=== PATIENT | male | born 1965 | race Caucasian/White ===

== ENCOUNTER 2021-06-30 11:55 | Emergency (ER) | payer OTHER ==
[~2021-06-30] VITALS: Ht 165.1 cm; Wt 81.2 kg
--- NOTE | 2021-06-30 12:13 | NUR ---
SENT TO ER BED 1.[id number] FRM WORK FOR NOTED SEIZURE LIKE ACTIVITY, COMBATIVE. 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 PT IS POOR HISTORIAN. A&OX1 ONLY RESPONSIVE TO STIMULI. SEIZURE PRECUATIONS APPLIED. VITALS ARE WITHIN NORMAL LIMITS. NO NOTED ORAL TRAUMA. DR ORNELAS AT BEDSIDE.
--- NOTE | 2021-06-30 12:19 | NUR ---
IV ESTABLISHED R AC 18G. LABS DRAWN AND COLLECTED. CONVERTED TO SALINE LOCK.
[2021-06-30 12:22] LABS: BASOPHILS # (AUTO) 0.1 K/uL (0.0-0.2); BASOPHILS % (AUTO) 1.1 % (0.0-2.0); EOSINOPHILS % (AUTO) 1.6 % (0.0-6.0); HEMATOCRIT 45 % (39-51); HEMOGLOBIN 14.7 g/dL (13.5-17.5); MEAN CORPUSCULAR HGB CONC 33 g/dl (31.0-36.0); MEAN CORPUSCULAR VOLUME 84 fL (80-96); MONOCYTES # (AUTO) 0.8 K/uL (0.1-1.30); NEUTROPHILS # (AUTO) 6.9 K/uL (1.8-8.9); NEUTROPHILS % (AUTO) 57.3 % (43.0-81.0); PLATELET COUNT (AUTO) 241 K/uL (150-450); RED BLOOD CELL COUNT(AUTO) 5.35 MIL/uL (4.5-6.0); WHITE BLOOD COUNT (AUTO) 12.1 K/uL (4.3-11.0)
--- NOTE | 2021-06-30 12:30 | NUR ---
PT TAKEN TO CT VIA ANGEL
[2021-06-30 12:38] LABS: CALCIUM, SERUM 8.4 mg/dL (8.5-10.1); CARBON DIOXIDE 19 mmol/L (21-32); CHLORIDE 102 mmol/L (98-107); CREATININE 1.1 mg/dL (0.6-1.3); GLUCOSE 128 mg/dL (74-106); POTASSIUM 3.6 mmol/L (3.5-5.1); SODIUM SERUM 136 mmol/L (136-145); UREA NITROGEN, BLOOD 17 mg/dL (7-18)
[2021-06-30 12:44] LABS: ALANINE AMINOTRANSFERASE 39 U/L (12-78); ALBUMIN 3.9 g/dL (3.4-5.0); ALCOHOL, BLOOD < 3 mg/dL (0-0); ALKALINE PHOSPHATASE 68 U/L (46-116); ASPARTATE AMINOTRANSFERASE 23 U/L (15-37); BILIRUBIN,DIRECT 0.1 mg/dL (0.0-0.2); BILIRUBIN,TOTAL 0.3 mg/dL (0.2-1.0); TOTAL PROTEIN, SERUM 7.6 g/dL (6.4-8.2)
[2021-06-30 13:15] VITALS: BP 141/92
--- NOTE | 2021-06-30 13:21 | NUR ---
PT WAS GIVEN DISCHARGE INSTRUCTION AND WAS INSTRUCTED NOT TO DRIVE. PT CALLED HIS AND SHE WILL BE HERE IN 30 MINUTES TO PICK HIM UP.
--- NOTE | 2021-06-30 13:56 | NUR ---
IV removed. Catheter intact and site benign. Pressure and 4x4 applied to site. No bleeding noted.Patient discharged to home in stable condition. Written and verbal after care instructions given. Patient verbalizes understanding of instruction.
== END 2021-06-30 13:57 | disposition home or self-care (01) ==
LOC: ER 12:02
DX: R56.9 Unspecified convulsions (principal)
CPT/HCPCS: 36415; 70450-TC; 71045-TC; 80048-TC; 80076-TC; 85025-TC; 85730-TC; G0480